=== PATIENT | female | born 1975 ===

== ENCOUNTER 2025-02-10 11:26 | Day surgery (SDC) | payer OTHER ==
[~2025-02-10] VITALS: Ht 165.1 cm; Wt 101.2 kg
[2025-02-10] MEDS ORDERED: DULOXETINE HCL60 M1 (12:28)
[2025-02-10] MEDS ORDERED: MONT10T (12:29)
[2025-02-10] MEDS ORDERED: LOSA50 (12:29)
[2025-02-10] MEDS ORDERED: ALBU90OI (12:29)
[2025-02-10] MEDS ORDERED: Norethindrone Ac5 MG (12:30)
[2025-02-10] MEDS ORDERED: CYCL10 (12:30)
[2025-02-10] MEDS ORDERED: STIOLTO RESPIMAT4 G1 (12:30)
[2025-02-10] MEDS ORDERED: TRAZ50 (12:30)
[2025-02-10] MEDS ORDERED: GEMFIBROZIL600 MG (12:31)
[2025-02-10] MEDS ORDERED: SPIRONOLACTONE50 MG (12:31)
[2025-02-10] MEDS ORDERED: ERGOCALCIFEROL (12:31)
[2025-02-10] MEDS ORDERED: AMLODIPINE BESY10 MG (12:31)
[2025-02-10] MEDS ORDERED: Hygroton50 MG (12:32)
[2025-02-10] MEDS ORDERED: Midazolam HCL 1 MG/ML 5MLVIAL ONE (13:19)
== END 2025-02-10 14:23 | disposition home or self-care (01) ==
LOC: ORSCSDS 11:26
DX: R68.81 Early satiety (principal); K44.9 Diaphragmatic hernia without obstruction or gangrene; R14.0 Abdominal distension (gaseous); K21.00 Gastro-esophageal reflux disease with esophagitis, without bleeding; R19.4 Change in bowel habit; K63.5 Polyp of colon; K64.8 Other hemorrhoids; K57.30 Diverticulosis of large intestine without perforation or abscess without bleeding; Z86.0101 Personal history of adenomatous and serrated colon polyps; R10.84 Generalized abdominal pain; I10 Essential (primary) hypertension; J45.909 Unspecified asthma, uncomplicated; Z79.899 Other long term (current) drug therapy
CPT/HCPCS: 88305; 88342; J2250; J2704; J7120